=== PATIENT | male | born 1960 | race Caucasian/White ===

== ENCOUNTER 2016-07-16 18:40 | Emergency (ER) | payer OTHER, MEDICAID ==
[~2016-07-16] VITALS: Ht 177.8 cm; Wt 93.0 kg
[~2016-07-16 18:40] MED LIST: CANA100T PO; CITA-48 PO; FENO134C PO; GABA100C4 PO; HYDR-2768 PO; ISOS10TA35 PO; LEVEMIR SQ; METO25 PO; NOVOLOGSS SQ; TRAD5TAB PO; TRAZ50TA4 PO
[2016-07-16 18:41] VITALS: BP 133/82; PULSE 102; RESP 20; TEMP 98.4; O2SAT 93
[2016-07-16] MEDS ORDERED: SODIUM CHLOR 0.9% 1000 ML INJ 1,000 ML IV ONE ×2 (20:32→21:02)
--- NOTE | 2016-07-16 20:37 | PD ---
HPI Chief Complaint: Diabetic Time Seen by Provider: 20:32 Travel History International Travel<30 days: No Contact w/Intl Traveler<30days: No Traveled to known affect area: No History of Present Illness HPI The patient is a 56-year-old male who presents emergency department for hyperglycemia and possible CVA. The patient states he awakened this morning and noted he had difficulty with his speech, slight slurring of speech, as well as numbness of the right upper extremity. The patient complains of numbness over the fourth and fifth digit of the right arm that radiates up the radial aspect of the right arm and stops at the elbow. He also complains of mild dysarthria and states he had difficulty buttoning his shirt earlier today, he had to have his family member but no fissure. He denies any weakness of the right upper extremity and denies any numbness or tingling of the lower extremities. The patient does have a history of previous CVA in 2015 per his report and currently takes surround toe for history of DVT. The patient also has a history of diabetes and states his blood sugars have been high recently and earlier today read "high ". The patient denies any current diplopia, chest pain, shortness breath, nausea, vomiting, or abdominal pain. PFSH Past Medical History Hx Anticoagulant Therapy: Yes (XARELTO) Arthritis: Yes Asthma: Yes Bipolar Disorder: Yes Anxiety: Yes Depression: Yes Cancer: No Cardiovascular Problems: Yes COPD: Yes Cerebrovascular Accident: Yes Diabetes: Yes Patient Takes Glucophage: No Diminished Hearing: No Deep Vein Thrombosis: Yes (L ARM, L LEG ) Endocrine: Yes Gastrointestinal Disorders: Yes Genitourinary: Yes Hypertension: Yes Implanted Vascular Access Dvce: Yes Kidney Stones: Yes Musculoskeletal: Yes Neurologic: Yes Psychiatric: Yes (BIPOLAR) Reproductive: No Respiratory: Yes (collapsed lung) Renal Failure: Yes (Stage III CKD ) Thyroid Disease: No Past Surgical History Abdominal Surgery: Yes (HIATAL HERNIA, COLON RESECTION ) Appendectomy: Yes Body Medical Devices: IVC FILTER Cholecystectomy: Yes Genitourinary Surgery: Yes (LITHOTRIPSY X 3) Tonsillectomy: Yes Other Surgery: Yes (GREEN FIELD FILTER ) Social History Alcohol Use: No Tobacco Use: No Substance Use: No Allergies-Medications (Allergen,Severity, Reaction): Coded Allergies: Erythromycin (Unverified Allergy, Mild, Nausea/Vomiting, 07/16/16) Reported Meds & Prescriptions Reported Meds & Active Scripts Active Reported Invokana (Canagliflozin) 100 Mg Tab 100 Mg PO HS Take before 1st meal of day. Citalopram (Citalopram Hydrobromide) 40 Mg Tab 40 Mg PO HS Fenofibrate Micronized 134 Mg Cap 134 Mg PO HS Gabapentin 100 Mg Cap 100 Mg PO HS Hydrochlorothiazide 25 Mg Tab 25 Mg PO HS Novolog Inj (Insulin Aspart) 1,000 Unit/10 Ml Vial Unknown Dose SQ ACHS Max dose at bedtime:( )units; sugars less than 70,(0) units; sugars 150-199,(5) units; sugars 200-249,(10) units; sugars 250-299,(15) units; sugars 300-349,(20)units; sugars greater than 349,(25)units Isosorbide Mononitrate 10 Mg Tab 10 Mg PO BID Take 2 doses 7 hours apart. Tradjenta (Linagliptin) 5 Mg Tab 5 Mg PO HS Metoprolol Tartrate 25 Mg Tab 25 Mg PO BID Trazodone (Trazodone HCl) 50 Mg Tab 50 Mg PO HS Tresiba Flextouch Pen Inj (Insulin Degludec Inj) 300 unit/3 ML Pen 48 Units SQ HS Review of Systems Except as stated in HPI: all other systems reviewed are Neg General / Constitutional: No: Fever HENT: No: Lightheadedness Cardiovascular: No: Chest Pain or Discomfort Respiratory: No: Shortness of Breath Gastrointestinal: No: Nausea, Vomiting, Abdominal Pain Musculoskeletal: No: Weakness Neurologic: Positive: Focal Abnormalities, Slurred Speech, Paresthesia, Sensory Disturbance, No: Dizziness Physical Exam Narrative GENERAL: Awake, alert, pleasant 56-year-old male who appears his stated age and is in no acute respiratory distress. SKIN: Warm and dry. HEAD: Atraumatic. Normocephalic. EYES: Pupils equal round reactive to light. EOMs are intact. Patient is able to see fingers at a distance of 2 feet without difficulty. ENT: No nasal bleeding or discharge. Mucous membranes pink and moist. NECK: Trachea midline. No JVD. CARDIOVASCULAR: Regular rate and rhythm. No murmur appreciated. RESPIRATORY: No accessory muscle use. Clear to auscultation. Breath sounds equal bilaterally. GASTROINTESTINAL: Abdomen soft, non-tender, nondistended. Well-healed surgical scar. MUSCULOSKELETAL: No obvious deformities. No clubbing. No cyanosis. No edema. NEUROLOGICAL: Awake and alert. Smile is symmetric. EOMs are intact. Patient is able to see fingers at a distance of 2 feet without difficulty. Tongue is midline. No drift of the upper or lower extremities. Finger to nose is normal. Heel to michael is normal. Patient has normal sensation of the lower extremities and the face bilaterally. However, patient has decreased sensation over the fourth and fifth digit the right arm as well as radial aspect of the forearm. I cannot detect any significant dysarthria, however, family member in the room note slight dysarthria/slurring of the speech. PSYCHIATRIC: Appropriate mood and affect; insight and judgment normal. Data Data Last Documented VS Vital Signs Date Time Temp Pulse Resp B/P Pulse Ox O2 Delivery O2 Flow Rate FiO2 07/16/16 20:40 94 Room Air 07/16/16 18:41 98.4 102 20 133/82 Orders Electrocardiogram (07/16/16 20:32) Complete Blood Count With Diff (07/16/16 20:32) Comprehensive Metabolic Panel (07/16/16 20:32) Magnesium (Mg) (07/16/16 20:32) Beta Hydroxybutyrate (Acetone) (07/16/16 20:32) Urinalysis - C+S If Indicated (07/16/16 20:32) Blood Glucose (07/16/16 20:32) Blood Glucose (07/16/16 21:32) Ecg Monitoring (07/16/16 20:32) Iv Access Insert/Monitor (07/16/16 20:32) Oximetry (07/16/16 20:32) NPO (07/16/16 20:32) Sodium Chlor 0.9% 1000 Ml Inj (Ns 1000 M (07/16/16 20:32) Sodium Chlor 0.9% 1000 Ml Inj (Ns 1000 M (07/16/16 21:02) Sodium Chloride 0.9% Flush (Ns Flush) (07/16/16 20:45) Troponin I (07/16/16 20:32) Ct Brain W/O Iv Contrast(Rout) (07/16/16 ) Acetamin-Hydrocod 325-5 Mg ([place] 5-325 (07/16/16 22:00) Labs Laboratory Tests Test 07/16/16 20:38 White Blood Count 7.3 TH/MM3 Red Blood Count 4.93 MIL/MM3 Hemoglobin 15.1 GM/DL Hematocrit 41.8 % Mean Corpuscular Volume 84.8 FL Mean Corpuscular Hemoglobin 30.5 PG Mean Corpuscular Hemoglobin 36.0 % Concent Red Cell Distribution Width 12.5 % Platelet Count 248 TH/MM3 Mean Platelet Volume 8.2 FL Neutrophils (%) (Auto) 47.0 % Lymphocytes (%) (Auto) 40.5 % Monocytes (%) (Auto) 9.2 % Eosinophils (%) (Auto) 2.6 % Basophils (%) (Auto) 0.7 % Neutrophils # (Auto) 3.5 TH/MM3 Lymphocytes # (Auto) 3.0 TH/MM3 Monocytes # (Auto) 0.7 TH/MM3 Eosinophils # (Auto) 0.2 TH/MM3 Basophils # (Auto) 0.1 TH/MM3 CBC Comment AUTO DIFF Differential Comment AUTO DIFF CONFIRMED Platelet Estimate NORMAL Platelet Morphology Comment NORMAL Sodium Level 134 MEQ/L Potassium Level 3.8 MEQ/L Chloride Level 98 MEQ/L Carbon Dioxide Level 29.9 MEQ/L Anion Gap 6 MEQ/L Blood Urea Nitrogen 13 MG/DL Creatinine 1.48 MG/DL Estimat Glomerular Filtration 50 ML/MIN Rate Random Glucose 294 MG/DL Calcium Level 9.2 MG/DL Magnesium Level 1.9 MG/DL Total Bilirubin 0.4 MG/DL Aspartate Amino Transf 30 U/L (AST/SGOT) Alanine Aminotransferase 54 U/L (ALT/SGPT) Alkaline Phosphatase 100 U/L Troponin I LESS THAN 0.02 NG/ML Total Protein 7.5 GM/DL Albumin 3.5 GM/DL B-Hydroxybutyrate 0.13 MMOL/L [facility] Medical Decision Making Medical Screen Exam Complete: Yes Emergency Medical Condition: Yes Medical Record Reviewed: Yes Interpretation(s) EKG reveals normal sinus rhythm with a rate of 79. Left axis deviation. Last Impressions Head CT 07/16/16 0000 Signed Impressions: Service Date/Time: Saturday, July 16, 2016 20:50 - CONCLUSION: Normal examination. Trae Farris MD Differential Diagnosis Differential diagnosis includes CVA, TIA, hyperglycemia, ulnar radiculopathy, cervical radiculopathy, coagulopathy, intracranial hemorrhage. Narrative Course IV was established, labs were drawn and sent, and the patient was placed on cardiac telemetry monitoring and continuous pulse oximetry monitoring. EKG was ordered and interpreted. CT the brain was ordered. Patient was administered 2 L of IV fluids. I reviewed the patient's EMR, he was seen in 2016 for unilateral paresthesias the face and had a negative MRI and MRA. Patient had ultrasound of the carotid arteries which was negative at that time and had an echocardiogram which revealed a small pericardial effusion, otherwise, was unremarkable. Patient has had a previous workup for TIA/CVA which is unremarkable. The patient's speech appears normal, however, he thinks there is mild dysarthria, physical examination appears to have ulnar radiculopathy with decreased sensation over the ulnar aspect of the right upper extremity. CT of the brain will be obtained to rule out intracranial hemorrhage as patient is on Xarelto. Patient was administered IV fluids for his hyperglycemia we will check blood sugars every hour 2. CT of the brain is negative. Blood glucose has improved down to 2:30, patient has ulnar neuropathy of the right upper extremity, his speech is normal on reevaluation and he had a negative TIA/CVA workup 1 year ago including ultrasound, echo, an MRI/MRA. Patient is a 32 on anticoagulants. We will start metformin for his hyperglycemia and he is advised to follow-up with his primary physician. Diagnosis Primary Impression: Hyperglycemia Additional Impression: Ulnar neuropathy of right upper extremity Patient Instructions: General Instructions Additional Instructions: Medrol Dosepak as directed. Follow-up with her primary physician. Return if symptoms worsen or progress. Med/Other Pt SpecificInfo: Med Stopped Scripts Metformin 500 Mg [id number] Mg PO BIDPC #60 TAB Ref 0 With meals Prov:Og Barragan MD 07/16/16 Methylprednisolone Dosepak (Medrol Dosepak)4 Mg Dspk4 Mg PO DIRECTED #1 DSPK Ref 0 Per Pharmacist direction Prov:Og Barragan MD 07/16/16 Disposition: 01 DISCHARGE HOME Condition: Stable Og Barragan MD Jul 16, 2016 20:37
[2016-07-16 20:40] VITALS: O2SAT 94
[2016-07-16] MEDS ORDERED: SODIUM CHLORIDE 0.9% FLUSH 10 ML FLUSH IVF PRN (20:45)
--- NOTE | 2016-07-16 21:10 | RADRPT ---
EXAM DATE/TIME: 07/16/2016 20:50 [facility] COMPARISON: CT BRAIN W/O CONTRAST, June 28, 2015, 15:13. INDICATIONS : Right sided weakness and headache. RADIATION DOSE: 56.35 CTDIvol (mGy) MEDICAL HISTORY : Hypertension. Renal failure, chronic. Cerebrovascular disease. SURGICAL HISTORY : None. ENCOUNTER: Initial ACUITY: 1 day PAIN SCALE: 5/10 LOCATION: cranial TECHNIQUE: Multiple contiguous axial images were obtained of the head. Using automated exposure control and adj ustment of the mA and/or kV according to patient size, radiation dose was kept as low as reasonably a chievable to obtain optimal diagnostic quality images. FINDINGS: CEREBRUM: The ventricles are normal for age. No evidence of midline shift, mass lesion, hemorrhage or acute in farction. No extra-axial fluid collections are seen. POSTERIOR FOSSA: The cerebellum and brainstem are intact. The 4th ventricle is midline. The cerebellopontine angle i s unremarkable. EXTRACRANIAL: The visualized portion of the orbits is intact. SKULL: The calvaria is intact. No evidence of skull fracture. CONCLUSION: Normal examination. Trae Farris MD on July 16, 2016 at 21:07 Board Certified Radiologist. This report was verified electronically.
[2016-07-16 21:11] LABS: ANION GAP 6 MEQ/L (5-15); AST (GOT) 30 U/L (15-37); BICARBONATE 29.9 MEQ/L (21.0-32.0); BLOOD UREA NITROGEN 13 MG/DL (7-18); CHLORIDE 98 MEQ/L (98-107); GLOMERULAR FILTRATION RATE 50 ML/MIN (>89); MAGNESIUM 1.9 MG/DL (1.5-2.5); POTASSIUM 3.8 MEQ/L (3.5-5.1); SODIUM (NA) 134 MEQ/L (136-145)
[2016-07-16 21:17] LABS: ALKALINE PHOSPHATASE 100 U/L (45-117); ALT (GPT) 54 U/L (12-78); BETA-HYDROXYBUTYRATE 0.13 MMOL/L (0.00-0.39); TOTAL BILIRUBIN ADULT 0.4 MG/DL (0.2-1.0)
[2016-07-16 21:23] LABS: AUTOMATED NEUTROPHIL # 3.5 TH/MM3 (1.8-7.7); BASOPHIL # 0.1 TH/MM3 (0-0.2); BASOPHIL % 0.7 % (0.0-2.0); EOSINOPHIL # 0.2 TH/MM3 (0-0.4); EOSINOPHIL % 2.6 % (0.0-4.0); HEMATOCRIT 41.8 % (39.0-51.0); LYMPH % 40.5 % (9.0-44.0); MEAN CELL VOLUME 84.8 FL (80.0-100.0); MEAN CORPUSCULAR HEMOGLOBIN 30.5 PG (27.0-34.0); MONO % 9.2 % (0.0-8.0); PLATELET COUNT 248 TH/MM3 (150-450); RED BLOOD COUNT 4.93 MIL/MM3 (4.50-5.90); RED CELL DISTRIBUTION WIDTH 12.5 % (11.6-17.2); WHITE BLOOD COUNT 7.3 TH/MM3 (4.0-11.0)
[2016-07-16 21:25] LABS: HEMO FLAGS AUTO DIFF
[2016-07-16 21:53] LABS: PLATELET ESTIMATE SMEAR NORMAL (NORMAL); PLATELET MORPHOLOGY NORMAL (NORMAL); SCAN/DIFF AUTO DIFF CONFIRMED
[2016-07-16] MEDS ORDERED: ACETAMINOPHEN/HYDROcodone 325 MG/5 MG TAB PO ONE (22:00)
[2016-07-16] MEDS ORDERED: CITA40TA4 PO (22:26)
[2016-07-16] MEDS ORDERED: GABA100C4 PO (22:26)
[2016-07-16] MEDS ORDERED: METO25TA3 PO (22:26)
[2016-07-16] MEDS ORDERED: NOVOLOGP2 SQ (22:26)
[2016-07-16] MEDS ORDERED: HYDR25TA5 PO (22:26)
[2016-07-16] MEDS ORDERED: CANA100T PO (22:26)
[2016-07-16] MEDS ORDERED: TRAD5TAB PO (22:26)
[2016-07-16] MEDS ORDERED: ISOS10TA3 PO (22:26)
[2016-07-16] MEDS ORDERED: FENO134C PO (22:26)
[2016-07-16] MEDS ORDERED: TRAZ50TA12 PO (22:26)
[2016-07-16] MEDS ORDERED: INSU1INJ14 SQ (22:26)
[2016-07-16] MEDS ORDERED: METF500T PO (22:45)
[2016-07-16] MEDS ORDERED: MEDR4PAK PO (22:45)
[2016-07-16 23:17] VITALS: BP 128/78
--- NOTE | 2016-07-17 16:22 | EKG ---
Date Performed: 07/16/2016 Time Performed: 20:45:45 PTAGE: 56 years EKG: Sinus rhythm BORDERLINE LEFT AXIS DEVIATION Since previous tracing, no significant change noted BORDERLINE ECG PREVIOUS TRACING : 07/21/2015 09.56 DOCTOR: Khoi Milner Interpretating Date/Time 07/17/2016 16:20:41
== END 2016-07-16 23:31 | disposition home or self-care (01) ==
LOC: NEPA 18:40
DX: R73.9 Hyperglycemia, unspecified (principal); G62.9 Polyneuropathy, unspecified; R94.31 Abnormal electrocardiogram [ECG] [EKG]; J45.909 Unspecified asthma, uncomplicated; E11.22 Type 2 diabetes mellitus with diabetic chronic kidney disease; I12.9 Hypertensive chronic kidney disease with stage 1 through stage 4 chronic kidney disease, or unspecified chronic kidney disease; N18.3 Chronic kidney disease, stage 3 (moderate); Z79.01 Long term (current) use of anticoagulants
CPT/HCPCS: 70450; 80053; 82010; 83735; 84484; 85025; 93005; 96360; 99285; J7030

== ENCOUNTER 2017-08-09 15:40 | Emergency (ER) | payer OTHER, MEDICAID ==
[~2017-08-09] VITALS: Ht 177.8 cm; Wt 88.0 kg
[~2017-08-09 15:40] MED LIST changes: -CITA-48 PO; +CITA40TA4 PO; -HYDR-2768 PO; +HYDR25TA5 PO; +INSU1INJ14 SQ; +ISOS10TA3 PO; -ISOS10TA35 PO; -LEVEMIR SQ; +MEDR4PAK PO; +METF500T PO; -METO25 PO; +METO25TA3 PO; +NOVOLOGP2 SQ; -NOVOLOGSS SQ; +TRAZ50TA12 PO; -TRAZ50TA4 PO
[2017-08-09 15:47] VITALS: BP 115/73; PULSE 112; RESP 18; TEMP 98.6; O2SAT 92
[2017-08-09 15:59] VITALS: BP 115/73; PULSE 109; RESP 18; TEMP 98.6; O2SAT 94
[2017-08-09] MEDS ORDERED: ONDANSETRON HCL 4 MG/2 ML VIAL IVP ONE (16:00)
[2017-08-09] MEDS ORDERED: SODIUM CHLOR 0.9% 1000 ML INJ 1,000 ML IV SCH (16:00)
[2017-08-09] MEDS ORDERED: MORPHINE SULFATE 4 MG/ML INJ IV PUSH ONE (16:00)
[2017-08-09] MEDS ORDERED: MORPHINE SULFATE 2 MG/ML SYRINGE IV PUSH ONE (16:15)
[2017-08-09 16:31] VITALS: BP 117/76; PULSE 112; RESP 17; O2SAT 97
--- NOTE | 2017-08-09 16:31 | RADRPT ---
EXAM DATE/TIME: 08/09/2017 16:09 [facility] COMPARISON: CHEST SINGLE AP, July 21, 2015, 10:00. INDICATIONS : Chest pain. MEDICAL HISTORY : Chronic obstructive pulmonary disease. Diabetes mellitus type II. Hypertension. mini stroke, licha l failure, chronic SURGICAL HISTORY : None. ENCOUNTER: Initial ACUITY: 1 day PAIN SCORE: Non-responsive. LOCATION: Bilateral chest FINDINGS: A single view of the chest demonstrates the lungs to be symmetrically aerated without evidence of mas s, infiltrate or effusion. The cardiomediastinal contours are unremarkable. Osseous structures are intact. CONCLUSION: No acute disease. Westley Weiss MD on August 09, 2017 at 16:29 Board Certified Radiologist. This report was verified electronically.
--- NOTE | 2017-08-09 16:45 | PD ---
HPI Chief Complaint: Cardiac Complaint Time Seen by Provider: 16:00 Travel History International Travel<30 days: No Contact w/Intl Traveler<30days: No Traveled to known affect area: No History of Present Illness HPI 57-year-old male that presents to the ED for evaluation of abdominal pain, nausea and vomiting as well as tachycardia. Patient apparently was seen at his primary care office for evaluation of the pain. Patient was evaluated and had a EKG did show atrial flutter in the 120s-140s. Because of patient's symptoms and throwing up he was sent here for evaluation. Patient comes here by ambulance for evaluation of this. Patient was brought here with a prescription from the doctor who was concerned about possible hyperglycemia related event as well as pancreatitis and atrial flutter. He wants us to work him up. Patient himself states that the pain on the lower abdomen is only with deep palpation. States that he has had chronic diarrhea. He states that he is noncompliant with his insulin. His sugars are usually in the 600s 500s. He denies any chest pain but states having some shortness of breath with exertion but has been ongoing for some time. Per patient he also has dry heaving that comes and goes and takes chronic pain medication for his abdomen. He has had multiple surgeries to his abdomen including appendectomy, gallbladder removal and part of his colon was removed. He has an allergy to erythromycin. He states that currently he has no pain unless his abdomen is touched on the lower abdomen. Bilaterally. When the pain comes is 7 out of 10. PFSH Past Medical History Hx Anticoagulant Therapy: Yes (XARELTO) Arthritis: Yes Asthma: Yes Bipolar Disorder: Yes Anxiety: Yes Depression: Yes Cancer: No Cardiovascular Problems: Yes COPD: Yes Cerebrovascular Accident: Yes Diabetes: Yes Patient Takes Glucophage: Yes Diminished Hearing: No Deep Vein Thrombosis: Yes (L ARM, L LEG ) Endocrine: Yes Gastrointestinal Disorders: Yes Genitourinary: Yes Hypertension: Yes Implanted Vascular Access Dvce: Yes Kidney Stones: Yes Musculoskeletal: Yes Neurologic: Yes Psychiatric: Yes (BIPOLAR) Reproductive: No Respiratory: Yes (collapsed lung) Renal Failure: Yes (Stage III CKD ) Thyroid Disease: No Tetanus Vaccination: > 5 Years Influenza Vaccination: Yes ?: Not Past Surgical History Abdominal Surgery: Yes (HIATAL HERNIA, COLON RESECTION ) Appendectomy: Yes Body Medical Devices: IVC FILTER Cholecystectomy: Yes Genitourinary Surgery: Yes (LITHOTRIPSY X 3) Tonsillectomy: Yes Other Surgery: Yes (GREEN FIELD FILTER ) Social History Alcohol Use: No Tobacco Use: No Substance Use: No Allergies-Medications (Allergen,Severity, Reaction): Coded Allergies: erythromycin base (Unverified Allergy, Mild, Nausea/Vomiting, 12/08/16) Reported Meds & Prescriptions Reported Meds & Active Scripts Active Metformin (Metformin HCl) 500 Mg Tab 500 Mg PO BIDPC With meals Medrol Dosepak (Methylprednisolone) 4 Mg Dspk 4 Mg PO DIRECTED Per Pharmacist direction Reported Invokana (Canagliflozin) 100 Mg Tab 100 Mg PO HS Take before 1st meal of day. Citalopram (Citalopram Hydrobromide) 40 Mg Tab 40 Mg PO HS Fenofibrate Micronized 134 Mg Cap 134 Mg PO HS Gabapentin 100 Mg Cap 100 Mg PO HS Hydrochlorothiazide 25 Mg Tab 25 Mg PO HS Novolog Inj (Insulin Aspart) 1,000 Unit/10 Ml Vial Unknown Dose SQ ACHS Max dose at bedtime:( )units; sugars less than 70,(0) units; sugars 150-199,(5) units; sugars 200-249,(10) units; sugars 250-299,(15) units; sugars 300-349,(20)units; sugars greater than 349,(25)units Isosorbide Mononitrate 10 Mg Tab 10 Mg PO BID Take 2 doses 7 hours apart. Tradjenta (Linagliptin) 5 Mg Tab 5 Mg PO HS Metoprolol Tartrate 25 Mg Tab 25 Mg PO BID Trazodone (Trazodone HCl) 50 Mg Tab 50 Mg PO HS Tresiba Flextouch Pen Inj (Insulin Degludec Inj) 300 unit/3 ML Pen 48 Units SQ HS Review of Systems Except as stated in HPI: all other systems reviewed are Neg Physical Exam Narrative GENERAL: SKIN: Warm and dry. HEAD: Atraumatic. Normocephalic. EYES: Pupils equal and round. No scleral icterus. No injection or drainage. ENT: No nasal bleeding or discharge. Mucous membranes pink and moist. Tongue is midline. No uvula deviation. NECK: Trachea midline. No JVD. CARDIOVASCULAR: Regular rate and rhythm. No murmurs, S3, S4. RESPIRATORY: No accessory muscle use. Clear to auscultation. Breath sounds equal bilaterally. GASTROINTESTINAL: Abdomen soft, tender to palpation in the lower quadrants of the abdomen bilaterally, nondistended. Hepatic and splenic margins not palpable. MUSCULOSKELETAL: Extremities without clubbing, cyanosis, or edema. No obvious deformities. Full range of motion of the upper and lower extremities bilaterally. 2+ pulses bilaterally. NEUROLOGICAL: Awake and alert. No obvious cranial nerve deficits. Motor grossly within normal limits. Five out of 5 muscle strength in the arms and legs. Normal speech. PSYCHIATRIC: Appropriate mood and affect; insight and judgment normal. Data Data Last Documented VS Vital Signs Date Time Temp Pulse Resp B/P (MAP) Pulse Ox O2 Delivery O2 Flow Rate FiO2 08/09/17 21:24 83 16 126/78 (94) 95 08/09/17 18:30 Room Air 08/09/17 15:59 98.6 Orders Orders Electrocardiogram (08/09/17 ) Complete Blood Count With Diff (08/09/17 16:00) Comprehensive Metabolic Panel (08/09/17 16:00) Ckmb (Isoenzyme) Profile (08/09/17 16:00) Troponin I (08/09/17 16:00) B-Type Natriuretic Peptide (08/09/17 16:00) Prothrombin Time / Inr (Pt) (08/09/17 16:00) Act Partial Throm Time (Ptt) (08/09/17 16:00) Lipase (08/09/17 16:00) Ua Includes Microscopic (08/09/17 16:00) Magnesium (Mg) (08/09/17 16:00) Beta Hydroxybutyrate (Acetone) (08/09/17 16:00) Thyroid Stimulating Hormone (08/09/17 16:00) Chest, Single Ap (08/09/17 16:00) Iv Access Insert/Monitor (08/09/17 16:00) Ecg Monitoring (08/09/17 16:00) Oximetry (08/09/17 16:00) Lactic Acid (08/09/17 16:00) Morphine Inj (Morphine Inj) (08/09/17 16:00) Ondansetron Inj (Zofran Inj) (08/09/17 16:00) Sodium Chlor 0.9% 1000 Ml Inj (Ns 1000 M (08/09/17 16:00) Morphine Inj (Morphine Inj) (08/09/17 16:15) Sodium Chlor 0.9% 1000 Ml Inj (Ns 1000 M (08/09/17 17:15) CKMB (08/09/17 16:00) CKMB% (08/09/17 16:00) Ventilation & Perfusion Scan (08/09/17 ) Ct Abd/Pel W/O Iv Contrast (08/09/17 ) Insulin Aspart Inj (Novolog Inj) (08/09/17 18:30) Ed Discharge Order (08/09/17 21:21) Labs Laboratory Tests Test 08/09/17 16:00 White Blood Count 6.6 TH/MM3 Red Blood Count 4.74 MIL/MM3 Hemoglobin 14.6 GM/DL Hematocrit 41.5 % Mean Corpuscular Volume 87.6 FL Mean Corpuscular Hemoglobin 30.9 PG Mean Corpuscular Hemoglobin Concent 35.3 % Red Cell Distribution Width 12.9 % Platelet Count 237 TH/MM3 Mean Platelet Volume 8.6 FL Neutrophils (%) (Auto) 65.3 % Lymphocytes (%) (Auto) 24.2 % Monocytes (%) (Auto) 9.2 % Eosinophils (%) (Auto) 0.8 % Basophils (%) (Auto) 0.5 % Neutrophils # (Auto) 4.3 TH/MM3 Lymphocytes # (Auto) 1.6 TH/MM3 Monocytes # (Auto) 0.6 TH/MM3 Eosinophils # (Auto) 0.1 TH/MM3 Basophils # (Auto) 0.0 TH/MM3 CBC Comment DIFF FINAL Differential Comment Prothrombin Time 11.4 SEC Prothromb Time International Ratio 1.1 RATIO Activated Partial Thromboplast Time 24.0 SEC Urine Color YELLOW Urine Turbidity CLEAR Urine pH 5.0 Urine Specific [place] 1.021 Urine Protein NEG mg/dL Urine Glucose (UA) 1000 mg/dL Urine Ketones NEG mg/dL Urine Occult Blood MOD Urine Nitrite NEG Urine Bilirubin NEG Urine Urobilinogen LESS THAN 2.0 MG/DL Urine Leukocyte Esterase NEG Urine RBC 40 /hpf Urine WBC 3 /hpf Urine Hyaline Casts 11 /lpf Blood Urea Nitrogen 19 MG/DL Creatinine 2.02 MG/DL Random Glucose 407 MG/DL Total Protein 6.7 GM/DL Albumin 3.2 GM/DL Calcium Level 9.2 MG/DL Magnesium Level 1.8 MG/DL Alkaline Phosphatase 110 U/L Aspartate Amino Transf (AST/SGOT) 50 U/L Alanine Aminotransferase (ALT/SGPT) 61 U/L Total Bilirubin 0.5 MG/DL Sodium Level 136 MEQ/L Potassium Level 4.1 MEQ/L Chloride Level 101 MEQ/L Carbon Dioxide Level 26.7 MEQ/L Anion Gap 8 MEQ/L Estimat Glomerular Filtration Rate 34 ML/MIN Lactic Acid Level 2.4 mmol/L Total Creatine Kinase 148 U/L Creatine Kinase MB 1.4 NG/ML Troponin I LESS THAN 0.02 NG/ML B-Type Natriuretic Peptide 13 PG/ML Lipase 184 U/L Thyroid Stimulating Hormone 3rd Gen 0.483 uIU/ML B-Hydroxybutyrate 0.12 MMOL/L MDM Medical Decision Making Medical Screen Exam Complete: Yes Emergency Medical Condition: Yes Medical Record Reviewed: Yes Interpretation(s) CBC & BMP Diagram 08/09/17 16:00 Total Protein 6.7, Albumin 3.2 L, Calcium Level 9.2, Magnesium Level 1.8, Alkaline Phosphatase 110, Aspartate Amino Transf (AST/SGOT) 50 H, Alanine Aminotransferase (ALT/SGPT) 61, Total Bilirubin 0.5 Last Impressions Chest X-Ray 08/09/17 1600 Signed Impressions: Service Date/Time: Wednesday, August 09, 2017 16:09 - CONCLUSION: No acute disease. Westley Weiss MD Lung Scan-V Nuclear Medicine 08/09/17 0000 Signed Impressions: Service Date/Time: Wednesday, August 09, 2017 19:58 - CONCLUSION: Low probability for pulmonary embolism. Kash Diaz MD Abdomen/Pelvis CT 08/09/17 0000 Signed Impressions: Service Date/Time: Wednesday, August 09, 2017 18:02 - CONCLUSION: 1. Moderate hepatic steatosis. 2. Small hiatal hernia. 3. Punctate bilateral nonobstructing renal calculi. Kash Diaz MD troponin and CKMB negative EKG shows sinus tachycardia but no sign of ischemia. Differential Diagnosis PE versus acute abdomen versus pancreatitis versus obstruction versus atrial flutter versus sinus tachycardia versus dehydration versus hyperglycemia versus DKA Narrative Course 57-year-old male presents to the ED for evaluation of tachycardia, abdominal pain and shortness of breath with exertion. Patient was properly examined and was found to have signs and symptoms of unclear etiology. Patient's physical exam is reassuring although he is very tachycardic. Labs and imaging order. He does not appear to be in atrial flutter at this time appears to be more sinus tachycardia. He does have a history of DVTs. Patient will start IV fluids, Zofran and morphine. Labs and imaging showed elevated lactic acid, hyperglycemia and sinus rhythm. Patient was given 2 liters of fluid, insulin and pain meds with resolutions of tachycardia, hyperglycemia, abdominal pain and N/V. My attending Dr. Hansen evaluated the patient with me and recommends admission to the chest pain center for chest pains and rule out aspiration found dizzy and had a tachycardia when she had this symptoms when she went to see his doctor. I offered admission to the chest pain center for the patient but patient declines. Patient he wants to go home and follow with his doctor. He feels better. At this time she understands reasons to come back. She understands that she has to be compliant with his insulin. AMA: The risks of leaving against medical advice without further evaluation treatment were discussed with the patient. These risks include cardiac dysfunction, cardiac dysrhythmia, possible heart attack, possible stroke or . The patient indicated understanding of these risks and appeared to have the capacity to make this decision. Patient was told to follow-up with PCP this week. See ED worsening symptoms. Diagnosis Primary Impression: Abdominal pain Qualified Codes: R10.30 - Lower abdominal pain, unspecified Patient Instructions: General Instructions Additional Instructions: Please follow-up with your doctor this week. See ED if worsening symptoms. Take her medications as prescribed. Limit the amount of sugar you take. Disposition: 07 AGAINST MEDICAL ADVICE Condition: Stable Flavio Fan Aug 09, 2017 16:45
[2017-08-09 16:47] LABS: AUTOMATED NEUTROPHIL # 4.3 TH/MM3 (1.8-7.7); BASOPHIL % 0.5 % (0.0-2.0); EOSINOPHIL # 0.1 TH/MM3 (0-0.4); EOSINOPHIL % 0.8 % (0.0-4.0); HEMATOCRIT 41.5 % (39.0-51.0); HEMOGLOBIN 14.6 GM/DL (13.0-17.0); LYMPH % 24.2 % (9.0-44.0); LYMPHOCYTE # 1.6 TH/MM3 (1.0-4.8); MEAN CELL VOLUME 87.6 FL (80.0-100.0); MEAN CORPUSCULAR HEMOGLOBIN 30.9 PG (27.0-34.0); MEAN CORPUSCULAR HGB CONC 35.3 % (32.0-36.0); MEAN PLATELET VOLUME 8.6 FL (7.0-11.0); MONO % 9.2 % (0.0-8.0); MONOCYTE # 0.6 TH/MM3 (0-0.9); NEUT % 65.3 % (16.0-70.0); PLATELET COUNT 237 TH/MM3 (150-450); RED BLOOD COUNT 4.74 MIL/MM3 (4.50-5.90); RED CELL DISTRIBUTION WIDTH 12.9 % (11.6-17.2); WHITE BLOOD COUNT 6.6 TH/MM3 (4.0-11.0)
[2017-08-09 16:53] LABS: BILIRUBIN, URINE NEG (NEG); BLOOD, URINE MOD (NEG); GLUCOSE,URINE 1000 mg/dL (NEG); HYALINE CAST, URINE 11 /lpf (RARE); KETONE, URINE NEG (NEG); NITRITE,URINE NEG (NEG); URINE COLOR YELLOW (YELLW/STRAW); URINE LEUKOCYTE ESTERASE NEG (NEG)
[2017-08-09 17:09] LABS: INTERNATIONAL NORMALIZED RATIO 1.1 RATIO; PROTHROMBIN TIME - PATIENT 11.4 SEC (9.8-11.6)
[2017-08-09 17:11] LABS: ALBUMIN 3.2 GM/DL (3.4-5.0); ALT (GPT) 61 U/L (12-78); AST (GOT) 50 U/L (15-37); BICARBONATE 26.7 MEQ/L (21.0-32.0); BLOOD UREA NITROGEN 19 MG/DL (7-18); CALCIUM 9.2 MG/DL (8.5-10.1); CHLORIDE 101 MEQ/L (98-107); CREATININE 2.02 MG/DL (0.60-1.30); GLOMERULAR FILTRATION RATE 34 ML/MIN (>89); GLUCOSE,RANDOM 407 MG/DL (74-106); MAGNESIUM 1.8 MG/DL (1.5-2.5); SODIUM (NA) 136 MEQ/L (136-145)
[2017-08-09] MEDS ORDERED: SODIUM CHLOR 0.9% 1000 ML INJ 1,000 ML IV ONE (17:15)
[2017-08-09 17:22] LABS: ALKALINE PHOSPHATASE 110 U/L (45-117); TOTAL BILIRUBIN ADULT 0.5 MG/DL (0.2-1.0); TOTAL PROTEIN 6.7 GM/DL (6.4-8.2); TROPONIN I LESS THAN 0.02 NG/ML (0.02-0.05)
--- NOTE | 2017-08-09 18:16 | RADRPT ---
EXAM DATE/TIME: 08/09/2017 18:02 [facility] COMPARISON: CT ABDOMEN & PELVIS W/O CONTRAST, July 21, 2015, 10:30. INDICATIONS : Abdomen pain. ORAL CONTRAST: No oral contrast ingested. RADIATION DOSE: 11.43 CTDIvol (mGy) MEDICAL HISTORY : Stroke. Cardiovascular disease Deep venous thrombosis.copd SURGICAL HISTORY : Appendectomy. Cholecystectomy. ENCOUNTER: Initial ACUITY: 1 day PAIN SCALE: 4/10 LOCATION: Bilateral abdomen TECHNIQUE: Volumetric scanning of the abdomen and pelvis was performed. Using automated exposure control and ad justment of the mA and/or kV according to patient size, radiation dose was kept as low as reasonably achievable to obtain optimal diagnostic quality images. DICOM format image data is available electro nically for review and comparison. FINDINGS: LOWER LUNGS: The visualized lower lungs are clear. LIVER: Decreased density without lesion. There is no dilation of the biliary tree. Cholecystectomy. SPLEEN: Normal size without lesion. PANCREAS: Within normal limits. KIDNEYS: Normal in size and shape. There is no mass or hydronephrosis. Punctate nonobstructing renal calculi measuring 2-5 mm more numerous on the left. If a vena cava filter. ADRENAL GLANDS: Within normal limits. VASCULAR: There is no aortic aneurysm. BOWEL/MESENTERY: The stomach, small bowel, and colon demonstrate no acute abnormality. There is no free intraperitone al air or fluid. Surgical clips adjacent to the spleen. ABDOMINAL WALL: Within normal limits. RETROPERITONEUM: There is no lymphadenopathy. BLADDER: No wall thickening or mass. REPRODUCTIVE: Within normal limits. INGUINAL: There is no lymphadenopathy or hernia. MUSCULOSKELETAL: Within normal limits for patient age. CONCLUSION: 1. Moderate hepatic steatosis. 2. Small hiatal hernia. 3. Punctate bilateral nonobstructing renal calculi. Kash Diaz MD on August 09, 2017 at 18:12 Board Certified Radiologist. This report was verified electronically.
[2017-08-09 18:30] VITALS: BP 107/71; PULSE 87; RESP 17; O2SAT 95
[2017-08-09] MEDS ORDERED: INSULIN ASPART 1,000 UNITS/10 ML VIAL SQ ONE (18:30)
--- NOTE | 2017-08-09 20:55 | RADRPT ---
EXAM DATE/TIME: 08/09/2017 19:58 [facility] COMPARISON: No previous studies available for comparison. INDICATIONS : Dyspnea with history of DVT. DOSE: 0.87 mCi Tc99m DTPA 8.8 mCi Tc99m MAA MEDICAL HISTORY : Renal insufficiency, chrnoic. Deep venous thrombosis. Diabetes mellitus type 2. SURGICAL HISTORY : Cholecystectomy. Appendectomy. IVC Filter placement. ENCOUNTER: Initial ACUITY: 1 day PAIN SCALE: 0/10 LOCATION: Bilateral chest TECHNIQUE: Following five minutes of tidal breathing of DTPA aerosol, planar images of the lungs were performed in eight projections. The patient was then injected with MAA, and eight-view perfusion scan was perf ormed. FINDINGS: There is a homogeneous pattern of aerosol delivery to the periphery of both lungs. No focal ventilat ory defects are seen. The perfusion lung scan demonstrates a homogenous pattern of uptake in both lungs. No segmental or s ubsegmental defects are seen. CONCLUSION: Low probability for pulmonary embolism. Kash Diaz MD on August 09, 2017 at 20:52 Board Certified Radiologist. This report was verified electronically.
[2017-08-09 21:24] VITALS: BP 126/78
--- NOTE | 2017-08-10 22:54 | EKG ---
Date Performed: 08/09/2017 Time Performed: 16:01:42 PTAGE: 57 years EKG: SINUS TACHYCARDIA WITH SHORT CA INTERVAL MARKED LEFT AXIS DEVIATION MINIMAL VOLTAGE CRITERI A FOR LVH, CONSIDER NORMAL VARIANT POSSIBLE ANTERIOR MYOCARDIAL INFARCTION ABNORMAL ECG PREVIOUS TRACING : 07/16/2016 20.45 Compared to previous tracing, rate faster DOCTOR: Matthew Alfaro Interpretating Date/Time 08/10/2017 22:53:04
== END 2017-08-09 22:06 | disposition left against medical advice (07) ==
LOC: NEPC 15:40
DX: R10.30 Lower abdominal pain, unspecified (principal); R00.0 Tachycardia, unspecified; R07.9 Chest pain, unspecified; I12.9 Hypertensive chronic kidney disease with stage 1 through stage 4 chronic kidney disease, or unspecified chronic kidney disease; N18.3 Chronic kidney disease, stage 3 (moderate); E11.22 Type 2 diabetes mellitus with diabetic chronic kidney disease; R06.00 Dyspnea, unspecified; Z79.4 Long term (current) use of insulin
CPT/HCPCS: 71045; 74176; 78582; 80053; 81001; 82010; 82550; 82552; 83605; 83690; 83735; 83880; 84443; 84484; 85025; 85610; 85730; 93005; 96361; 96372; 96374; 96375; 99285; A9540; A9567; J1815; J2270; J2405; J7030